=== PATIENT | female | born 2000 ===

== ENCOUNTER 2023-02-15 14:02 | Outpatient (REF) | payer SELFPAY ==
[2023-02-15 16:35] LABS: Estimated Glomerular Filt Rate > 60
[2023-02-16 08:45] LABS: ~HepC Num1 0.07 S/CO (0.00-0.79); ~Hepatitis C Antibody Nonreactive (Nonreactive)
[2023-02-17 08:17] LABS: Syphilis Screen Reactive (Nonreactive)
[2023-02-18 10:29] LABS: HIV RNA PCR Qn Copies NOT DETECTED copies/mL (NOT DETECTED); HIV RNA PCR Qn Log Copies NOT DETECTED (NOT DETECTED)
[2023-02-23 14:58] LABS: RPR Quantitative Reactive 1:1 (Nonreactive); T.Pallidum Particle Agg Test Reactive (Nonreactive)
== END 2023-02-15 14:03 | disposition home or self-care (01) ==
LOC: HO.HHCL 14:02
PROVIDERS: Visit Provider Nurse Practitioner Primary Care
DX: Z20.2 Contact with and (suspected) exposure to infections with a predominantly sexual mode of transmission (principal)
CPT/HCPCS: 36415; 82565; 86592; 86780; 86803; 87536

== ENCOUNTER 2023-03-31 14:59 | Outpatient (REF) | payer SELFPAY ==
[2023-03-31 16:00] LABS: MANUAL DIFF FLAG NO
[2023-03-31 16:13] LABS: Basophils Percent Auto 0.4 % (0-2); Eosinophils Absolute Auto 0.2 X10*3/uL (0.0-0.4); Hematocrit 42.7 % (37.0-47.0); Hemoglobin 14.5 g/dl (12.0-16.0); Imm Gran Abs Auto 0.02 X10*3/uL (0.00-0.03); Imm Gran Pct Auto 0.3 % (0.0-0.4); Lymphocytes Absolute Auto 2.2 X10*3/uL (1.2-4.9); Lymphocytes Percent Auto 33.3 % (20-40); Mean Corpuscular Hemoglobin 27.7 pg (27.0-33.0); Mean Corpuscular Volume 81.6 fL (80.0-98.0); Monocytes Absolute Auto 0.9 X10*3/uL (0.1-1.2); Monocytes Percent Auto 12.8 % (2-11); Neutrophils Absolute Auto 3.4 x10*3/uL (2.0-8.3); Neutrophils Percent Auto 50.2 % (45-73); Platelet Count 371 X10*3/uL (160-400); Red Blood Count 5.23 X10*6/uL (4.20-5.50); Red Cell Distribution Width 15.7 % (11.0-16.0); White Blood Count 6.7 X10*3/uL (4.8-10.8)
[2023-03-31 16:26] LABS: Appearance Urine Clear; Color Urine Yellow; Glucose Urine UA Negative (Negative); Leukocyte Esterase Urine Negative (Negative); Nitrite Urine Negative (Negative); Urine Blood Negative (Negative); Urine Ketones Negative (Negative); Urine Protein Trace mg/dL (Neg-Trace)
[2023-03-31 16:30] LABS: Estimated Average Glucose 103 mg/dL; Hemoglobin A1c % 5.2 % (<6.0)
[2023-03-31 16:34] LABS: Bacteria Urine None Seen (None Seen); Hyaline Casts Urine 0-2 /LPF (0-2); RBC Urine 0-2 /HPF (0-2); Squamous Epithelial Cell Urine 0-2 /HPF (0-2); WBC Urine 0-5 /HPF (0-5)
[2023-03-31 17:51] LABS: Alanine Aminotransferase 27 U/L (0-31); Albumin Level 4.3 g/dL (3.5-5.0); Alkaline Phosphatase 75 U/L (39-117); Aspartate Amino Transferase 21 U/L (5-31); Bilirubin Direct 0.1 mg/dL (0.0-0.5); Bilirubin Total 0.4 mg/dL (0.0-1.0); Iron 58 mcg/dL (30-160); Percent Iron Saturation 18 % (15-50); Total Iron Binding Capacity 319 mcg/dL (228-428); Total Protein 7.4 g/dL (6.5-8.0); Unsaturated Iron Binding 261 ug/dL
[2023-03-31 18:15] LABS: Ferritin 14 ng/mL (10-122); TSH reflex Free T4 > 100.00 uIU/mL (0.32-4.0)
[2023-03-31 18:49] LABS: Free T4 (Free Thyroxine) 0.81 ng/dL (0.71-1.85)
[2023-04-04 16:04] LABS: HIV RNA PCR Qn Copies NOT DETECTED copies/mL (NOT DETECTED); HIV RNA PCR Qn Log Copies NOT DETECTED (NOT DETECTED)
== END 2023-03-31 15:00 | disposition home or self-care (01) ==
LOC: HO.HHCL 14:59
PROVIDERS: Visit Provider Nurse Practitioner Primary Care
DX: Z79.899 Other long term (current) drug therapy (principal); E03.9 Hypothyroidism, unspecified; D50.9 Iron deficiency anemia, unspecified; R30.0 Dysuria; R73.01 Impaired fasting glucose; Z11.4 Encounter for screening for human immunodeficiency virus [HIV]
CPT/HCPCS: 36415; 80076; 81001; 82728; 83036; 83540; 84439; 84443; 85025; 87536